=== PATIENT | male | born 1970 | race Caucasian/White ===

== ENCOUNTER 2017-12-07 08:56 | Emergency (ER) | payer OTHER ==
[~2017-12-07] VITALS: Ht 167.6 cm; Wt 93.0 kg
[~2017-12-07 08:56] MED LIST: BENADRYL PO; [UNRECOGNIZED DRUG - OTHER] PO
== END 2017-12-07 13:50 | disposition home or self-care (01) ==
LOC: ER 08:56
DX: R42 Dizziness and giddiness (principal)